=== PATIENT | male | born 1980 | race Caucasian/White ===

== ENCOUNTER 2023-10-14 19:32 | Emergency (ER) | payer OTHER, SELFPAY ==
--- NOTE | ~2023-10-14 | CT_ITS ---
CT ANGIOGRAM NECK AND HEAD History: CVA. Technique: Axial noncontrast imaging of the brain was performed. Serial spiral axial images through t he head and neck were then obtained during arterial phase IV injection of 100 cc of Omnipaque 350. 3- D postprocessing and MIP images were then reconstructed on the remote workstation. Dose reduction kavitha hnique was used on this scan by utilizing automated exposure control and iterative reconstruction kavitha hnique. The dose-length product (DLP) was 1861.74 mGy-cm. CTA neck findings: Bilateral vertebral arteries patent. Bilateral common carotid, internal carotid, and external carotid arteries are patent. No large vessel occlusion. No stenosis or aneurysm. The pro ximal right internal carotid artery demonstrates 0% stenosis relative to the normal distal artery lum en diameter. The proximal left internal carotid artery demonstrates 0% stenosis relative to the gracie l distal artery lumen diameter. CTA head findings: Distal vertebral arteries are patent. Distal right vertebral artery terminates as the right PICA, normal variant. Basilar artery and posterior cerebral arteries are patent. Distal int ernal carotid arteries, middle cerebral arteries, and anterior cerebral arteries are patent. No large vessel occlusion. No stenosis or aneurysm. Axial noncontrast imaging of brain is unremarkable. No acute infarct, intracranial hemorrhage or mass lesion identified. Rosenberg-white differentiation preserved. No mass effect or midline shift. Ventricles and subarachnoid spaces are unremarkable. Paranasal sinuses and mastoid air cells are clear. Calvari um intact. Impression: Unremarkable exam. Reviewed, dictated and finalized at [facility]. 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
[2023-10-14 19:58] VITALS: BP 142/89; PULSE 96; RESP 16; TEMP 36.2; O2SAT 95
--- NOTE | 2023-10-14 23:15 | ECG_ITS ---
Measurements Intervals [place] Rate: 76 P: 31 AR: 163 QRS: -18 QRSD: 99 T: 29 QT: 354 QTc: 399 Interpretive Statements SINUS RHYTHM WITH SINUS ARRHYTHMIA NO PREVIOUS ECG AVAILABLE FOR COMPARISON Electronically Signed On 10-15-2023 15:22:38 FLIGHT OPERATIONS COORDINATOR by Eduar Thurston M.D.
[2023-10-14 23:18] VITALS: BP 134/90; PULSE 84; RESP 16; O2SAT 99
[2023-10-14 23:31] VITALS: BP 136/81; PULSE 89; RESP 12; O2SAT 97
[2023-10-15 00:15] LABS: Basophils Absolute Auto 0.1 K/mm3 (0.0-0.1); Eosinophils Absolute Auto 0.4 K/mm3 (0-0.3); Eosinophils Percent Auto 4.1 % (0-4.4); Hematocrit 44.8 % (42.0-52.0); Immature Granulocyte Absolute 0.03 K/mm3 (0.00-0.031); Immature Granulocyte Percent A 0.3 % (0-0.5); Lymphocytes Percent Auto 23.7 % (18.3-44.2); Mean Corpuscular HGB Conc 33.5 g/dl (32-36); Mean Corpuscular Hemoglobin 29.8 pg (26-34); Mean Corpuscular Volume 88.9 fl (80-100); Mean Platelet Volume 9.8 fl (7.4-10.4); Monocytes Absolute Auto 0.7 K/mm3 (0.1-0.6); Monocytes Percent Auto 6.7 % (2.6-8.5); Neutrophils Absolute Auto 6.2 K/mm3 (1.3-6.7); Neutrophils Percent Auto 64.2 % (45.5-73.1); Platelet Count Result 326 k/mm3 (150-375); Red Blood Count 5.04 M/mm3 (4.6-6.20); Red Cell Distribution Width 13.2 % (11.5-14.5); White Blood Count 9.7 K/mm3 (4.5-10.0)
[2023-10-15 00:24] LABS: Alanine Aminotransferase 42 U/L (6-50); Albumin Level 4.3 g/dL (3.5-5.1); Alkaline Phosphatase 89 U/L (38-126); Anion Gap 5 mmol/L (8-16); Aspartate Amino Transferase 30 U/L (17-59); Bilirubin,Total 0.7 mg/dL (0.2-1.3); Blood Urea Nitrogen 10 mg/dL (9-20); Calcium 8.8 mg/dL (8.4-10.2); Carbon Dioxide 29 mmol/L (22-30); Chloride 103 mmol/L (98-107); Estimated CRCL calculation 95 ml/min; Estimated Glomerular Filt Rate > 60; Glucose 102 mg/dL (65-110); Potassium 3.5 mmol/L (3.4-5.0); Sodium 137 mmol/L (137-145)
[2023-10-15 00:31] VITALS: BP 132/94; PULSE 85; RESP 15; O2SAT 98
--- NOTE | 2023-10-15 01:39 | ED.GENADULT ---
HPI - General Adult General Chief complaint: Neuro Symptoms/Deficit Stated complaint: balance issues/double vision Time Seen by Provider: 10/14/23 23:33 History of Present Illness HPI narrative: 43-year-old male present to the emergency department for evaluation issues with balance and double vision. Patient states a few months ago he was having issues with double vision and that this did improve. Patient states that he also has some intermittent balance issues when walking but states that is not constant. Patient states symptoms have been improving and were not severe today but he reports he presented to the emergency department today since his urged him to. At time of evaluation patient denies any vision change denies any lightheaded or dizziness and denies any focal numbness or weakness. Patient states when he had the double vision he took a picture and could tell that 1 eye was higher than the other. Related Data Allergies Allergy/AdvReac Type Severity Reaction Status Date / Time No Known Allergies Allergy Verified 10/14/23 19:32 Review of Systems Review of Systems: All systems reviewed & are unremarkable except as noted in HPI and below Exam Narrative: APPEARANCE: Well appearing, no pain, no distress, well-nourished. HEAD: normocephalic, atraumatic. EYES: PERRLA/EOMI, conjunctivae clear. NOSE: Normal no drainage EARS:TMS clear with good light reflex. THROAT: Pharynx clear, no exudate. NECK: Supple. No adenopathy, no masses. RESPIRATORY: Airway patent, respirations nonlabored. Clear to auscultation bilaterally, no rales, rhonchi, wheezing. CARDIOVASCULAR: Regular rate and rhythm without murmurs rubs or gallops. ABDOMINAL: Soft, nontender, nondistended, normal bowel sounds MUSCULOSKELETAL: Moves all extremities. Strength/ROM intact, No edema, No calf tenderness. NEURO: Alert. Cranial nerves II through XII intact. Normal for him backward tandem gait, negative Romberg. Normal neuro exam, normal visual bates, no double vision, normal strength reflexes SKIN: Warm, dry. Normal Color Course Course Emergency Course: 43-year-old male presenting to the emergency department for evaluation multiple neurologic symptoms that have been ongoing / intermittent over the last 6 weeks. at time of examination patient denies any current symptoms. Patient states his issue with double vision was worse about a month ago but has since improved. Patient states he does have some intermittent dizziness issues. Patient had a normal neuro exam and negative Romberg with normal for backward tandem gait. No acute abnormalities on the CT scan. Patient had NIH score is 0. Patient will be provided outpatient follow-up with Neurology. Patient was also provided follow-up with a primary care physician. Patient was updated on results of the workup and was strongly encouraged to have close follow-up with PCP and Neurology. Patient was also educated on reasons to return to the emergency department. Vital Signs Vital signs: Vital Signs Temperature 97.2 F L 10/14/23 19:58 Pulse Rate 96 10/14/23 19:58 Respiratory Rate 16 10/14/23 19:58 Blood Pressure 142/89 H 10/14/23 19:58 Pulse Oximetry 95 10/14/23 19:58 Oxygen Delivery Room Air 10/14/23 19:58 Temperature 97.2 F L 10/14/23 19:58 Pulse Rate 82 10/15/23 02:55 Respiratory Rate 17 10/15/23 02:55 Blood Pressure 130/87 10/15/23 02:55 Pulse Oximetry 97 10/15/23 02:55 Oxygen Delivery Room Air 10/14/23 19:58 Medical Decision Making Differential Diagnosis Differential Diagnosis: Sinus infection, inner ear infection, Montejo's palsy, cranial nerve palsy. Vital Signs Vital Signs: Vital Signs Temperature 97.2 F L 10/14/23 19:58 Pulse Rate 96 10/14/23 19:58 Respiratory Rate 16 10/14/23 19:58 Blood Pressure 142/89 H 10/14/23 19:58 Pulse Oximetry 95 10/14/23 19:58 Oxygen Delivery Room Air 10/14/23 19:58 Temperature 97.2 F L 09/26
[2023-10-15 01:45] VITALS: BP 137/78; PULSE 85; RESP 16; O2SAT 94
[2023-10-15 02:55] VITALS: BP 130/87; PULSE 82; RESP 17; O2SAT 97
== END 2023-10-15 02:57 | disposition home or self-care (01) ==
PROVIDERS: Emergency Provider Emergency Medicine; PCP Family Medicine
DX: H53.2 Diplopia (principal); R42 Dizziness and giddiness
CPT/HCPCS: 36415; 70496; 70498; 80053; 85025; 93005; 99284; Q9967